=== PATIENT | female | born 1995 | race African-American/Black ===

== ENCOUNTER → 2019-07-05 | Outpatient (CLI) | payer OTHER ==
[~2019-07-05] MED LIST: PRENTAB9 PO
--- NOTE | 2019-07-05 22:19 | REP ---
Clinical: Growth evaluation. Comparison: None . Findings: Examination demonstrates a single live intrauterine in cephalic presentation. motion is identified by technologist. Placenta is noted the anterior and grade 2 without evidence for placenta previa or abruption. Amniotic fluid volume is normal. Cervix measures 3.6 cm in length and appears closed. No evidence for nuchal cord. Gestational age by current measurements 32 weeks 0 days with ROLDAN 08/30/2019 . FHR equals 153 beats per minute. BPD 7.9 cm 31 weeks 5 days HC 29.4 cm 32 weeks 3 days AC 27.8 cm 31 weeks 6 days FL 6.2 cm 832 weeks 2 days HL 5.5 cm 831 weeks 5-day HC/AC ratio 1.05 Estimated weight 1887 grams ( 44th percentile). Amniotic fluid index: 11.0 cm (8.6 - 24.2) Umbilical cord SD ratio: 2.17 (2.50 - 3.50) Anatomical assessment demonstrates normal structures including cranium, cavum, facial features, lungs, ventricular outflow tracts, diaphragm, stomach, cord insertion, kidneys/bladder. Limited evaluation of the cord plexus, posterior fossa/cerebellum, four-chamber heart, cord insertion, spine and extremities. Impression: Single live intrauterine in cephalic presentation demonstrating appropriate estimated weight. Anatomical limitations as noted above. Electronically Signed by Esdras Jaime MD 07/05/2019 10:10 P
== END ==
LOC: M RAD 12:55
PROVIDERS: ATTEND Advanced Practice Midwife
DX: Z34.83 Encounter for supervision of other normal pregnancy, third trimester (principal)

== ENCOUNTER 2019-07-11 15:18 | Outpatient (CLI) | payer OTHER ==
[~2019-07-11] VITALS: Ht 167.6 cm; Wt 135.0 kg
[2019-07-11 15:41] VITALS: BP 115/57
[2019-07-11] MEDS ORDERED: PRENTAB9 PO (16:07)
[2019-07-11 16:16] VITALS: BP 114/60
--- NOTE | 2019-07-11 17:25 | IPNPDOC ---
Obstetrical Progress Note Date of Service Jul 11, 2019 Subjective 23yo at 33+3wks by LMP, EDC [id number], sent from [facility] for NST. Pt's complicated by morbid obesity (BMI 45.03) and currently undergoing weekly APFT. Pt was unable complete monitoring in clinic today, unable to keep EFM in place d/t body habitus. Pt has no concerns today. Objective Vital Signs Date Time Temp Pulse Resp B/P (MAP) Pulse Ox O2 Delivery O2 Flow Rate FiO2 07/11/19 16:16 98.2 85 18 114/60 (78) Assessment Heart Rate (FHR): 135 Variability: Moderate Accelerations: Positive Decelerations: None Heart Rate Tracing: Category I Tocometer Contractions: No Assessment and Plan Status: Reassuring Additional Comments A: at 33+3 wks, Reactive Tracing, Category I P: Discharge home with precautions f/u in 1 week for APFT or sooner PRN AMBER STEEL CNM Jul 11, 2019 17:02
== END 2019-07-11 16:20 | disposition home or self-care (01) ==
LOC: M LDO 15:18
PROVIDERS: ATTEND Registered Nurse Maternal Newborn
DX: Z36.89 Encounter for other specified antenatal screening (principal); O99.213 Obesity complicating pregnancy, third trimester; Z68.42 Body mass index [BMI] 45.0-49.9, adult; Z3A.33 33 weeks gestation of pregnancy

== ENCOUNTER 2019-08-24 16:57 | Inpatient (IN) | payer OTHER ==
[~2019-08-24] VITALS: Ht 167.6 cm; Wt 141.1 kg
[2019-08-24 17:26] VITALS: BP 118/69
[2019-08-24] MEDS ORDERED: PENICILLIN G POTASSIUM IV 5 MU in D5W MINI-BAG PLUS 100 ML IV STA (17:34)
[2019-08-24] MEDS ORDERED: LACTATED RINGER'S 1000 ML IV STA (17:34)
[2019-08-24] MEDS ORDERED: ASPI81CH33 PO (17:41)
--- NOTE | 2019-08-24 17:54 | HPEPDOC ---
Obstetrical History & Physical General Date of Admission 08/24/19 Primary Care Physician: Fariha Rowan MD History of Present Illness OB Considerations: GDMA1 VZV non immune GBS positive BI 45 Ms. Andrews is a 23y/o G1 @ 39+5 wks by LMP c/w 11 wk US (ROLDAN [id number]) presenting for SROM clear fluid at 1418 this afternoon. Endorses painful contractions x2 days. Denies vaginal bleeding. Active movement. Chief Complaint: LOF, term Information Provided By: Patient Age: 23 : 1 Term: 0 Pre-term: 0 Abortions: 0 Livin Care Care: Good Care Dating Final EDC: Aug 26, 2019 Final EDC for Daily Update: Aug 26, 2019 Final EDC by: LMP LMP: Nov 19, 2018 1st Trimester Date: Jan 31, 2019 Estimated Date of Confinement: Aug 26, 2019 EGA at Admission: 39.5 Antepartum Course Diagnos(e)s Obesity, GDMA1, VZV non immune, GBS pos Height (inches): 66 Pre- weight (lbs.): 279 Admission Weight (lbs.): 310 Change in Weight (lbs.): 31.2 Past Medical History Past Obstetrical History : Past Obstetrical History: Primgravida Past Medical History Medical History Denies Surgical History: Denies/None Family History Significant Family History: No pertinent family hx Family History Aunt with breast cancer Social History Marital Status: Family situation: Spouse/partner home Psychosocial History: No pertinent psych hx * Smoker: non-smoker Alcohol: Denies Drugs: denies Abuse Violence Screening Have you been hit/kicked/slapp: No Have you been sexually assault: No Allergies Coded Allergies: No Known Allergies (Unverified , 07/11/19) Medications Scheduled Aspirin (Aspirin) 81 Mg Tab.chew, 1 TAB PO DAILY for pain No.137/Iron/Folic Acd ( Vitamin Tablet) 1 Each Tablet, 1 TAB PO DAILY Physical Examination Physical Examination GENERAL: Alert and oriented times three. BREAST: . ABDOMEN: Gravid and non-tender to touch. FETUS: Is vertex (VTX) by sterile vaginal examination (SVE), fetus is vertex (VTX) by Jose Enrique. TAUS confirms cephalic presentation. HEART RATE: Regular rate and rhythm. LUNGS: Clear to auscultation (CTA). EXTREMITIES: No edema. Vital Signs/I&O hr 95 bp 127/91 Laboratory Data 24H LABS HCT 34.8 Platelets 254 Urine Culture: Other Pertinent Laboratoy Data Blood Type: AB+ RBC Antibody Screen: Negative HIV: Negative Hepatitis B: Negative Hepatitis C: Unknown Rapid Plasma Reagin: Nonreactive Rubella: Immune Varicella: Nonreactive Chlamydia/Gonorrhea: Negative Quad Screen Test: Negative Cystic Fibrosis: Negative Anatomy Ultrasound Ultrasound Date: Jun 19, 2019 Placenta Location: Anterior Normal Anatomy: Yes Placenta Previa: No Estimated Weight (grams): 1493 Other Ultrasounds [id number] Information EFW 2865g +/- 430g 64%tile Steroid Therapy Steroid Therapy: No Vaginal Examination Dilation: 2cm Effacement: 70% Station: -2 Cervical Consistency: Soft Cervical Position: Posterior Presentation: Cephalic presentation Position: Vertex (occiput) Assessment Heart Rate (FHR): 145 Variability: Moderate Accelerations: Positive Decelerations: None Tocometer Contractions: No Multi-drug resistant Organism: No history of MDRO Assessment/Plan Assessment 23y/o G1 @ 39+5 wks by LMP c/w 11 wk US admitted for PROM clear fluid. Plan Admit and orient. Safety Manager and consent. Diet: Clear liquid Group B Streptococcus (GBS) positive. PCN ordered for prophylaxis. Labs and intravenous (IV) per unit protocol. Counseled on Pitocin and induction of labor (IOL). Lactated Ringers (LR): Bolus 1000 mL, then at 125 mL/hr. Anticipate normal spontaneous delivery (). C-S as appropriate. Labor and Delivery Counseling Discussed with patient procedures on labor and delivery to include external and internal monitoring of contractions and FHR. Discussed medications for induction of labor and medications for pain. Risks of labor and delivery include infections, which would be treated with antibiotics, need for episiotomy or tearing of the vaginal opening which will be repaired with absorbable sutures. Risks of bleeding to include need for blood transfusion with subsequent risks of bloodborne infection (Hepatitis/HIV) or transfusion reaction. Other procedures may be needed for distress such as forceps, v acuum or emergency . Other risks include injury to baby or additional procedures following delivery. Fariha Rowan MD Aug 24, 2019 17:54
[2019-08-24 18:51] VITALS: BP 127/91
[2019-08-24 19:11] LABS: HEMATOCRIT 34.8 % (36.0-47.0); HEMOGLOBIN 11.1 g/dl (12.0-15.5); MEAN CORPUSCULAR HEMOGLOBIN 28.2 pg (27.0-33.0); MEAN CORPUSCULAR HGB CONC 31.9 g/dl (32.0-36.5); MEAN CORPUSCULAR VOLUME 88.3 fl (80.0-96.0); PLATELET COUNT, AUTOMATED 254 10^3/uL (150-450); RED BLOOD COUNT 3.94 10^6/uL (4.00-5.40); WHITE BLOOD COUNT 7.5 10^3/uL (4.0-10.0)
[2019-08-24] MEDS ORDERED: miSOPROStol 50 MCG 1/2 TAB (S0191) SL ONE (21:00)
[2019-08-24] MEDS: LR 1,000 ML IV SCH (21:48)
[2019-08-24] MEDS: PENICILLIN G POTASSIUM IV 2.5 MU in IV 1 EA IV SCH (23:24)
[2019-08-25] VITALS (31 sets, daily range): BP systolic 88–137; BP diastolic 50–79
[2019-08-25] MEDS: LR 1,000 ML IV SCH ×4 (01:00→16:02)
--- NOTE | 2019-08-25 02:19 | IPNPDOC ---
Text Note Date of Service The patient was seen on 08/25/19. NOTE OB Considerations: GDMA1 - Dstick 102, repeat 74 VZV non immune GBS positive BMI 45 Ms. Andrews is a 23y/o G1 @ 39+5 wks by LMP c/w 11 wk US (ROLDAN [id number]) presenting for SROM clear fluid at 1418. 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
[2019-08-25] MEDS ORDERED: OXYTOCIN DRIP 30 UNITS in IV 1 EA IV SCH ×3 (02:30→15:30)
[2019-08-25] MEDS: PENICILLIN G POTASSIUM IV 2.5 MU in IV 1 EA IV SCH ×3 (03:41→11:01)
--- NOTE | 2019-08-25 04:59 | IPNPDOC ---
Text Note Date of Service The patient was seen on 08/25/19. NOTE OB Considerations: GDMA1 - Dstick 102, repeat 74 VZV non immune GBS positive BMI 45 Ms. Andrews is a 23y/o G1 @ 39+6 wks by LMP c/w 11 wk US (ROLDAN [id number]) presenting for SROM clear fluid at 1418. To room with difficulty tracing FHR and contractions due to patient movement with discomfort as well as body habitus. Presenting for internal monitors per RN request. /-2 Cytotec 50mcg Buccal 0950 0210 /-1 0430 /-1, FSE and IUPC placed this exam With internals in place: NST: 145, mod, +accels, no decels TOCO: q3 minutes A/p: 23y/o G1 @ 39+6 wks in latent labor with Familia tracing -Continue PCN for GBS prophylaxis -Continue Pitocin per protocol -Repeat DCE 4-6 hours or sooner PRN VS,Fishbone, I+O VS, Fishbone, I+O Laboratory Tests 08/24/19 18:49 Vital Signs Date Time Temp Pulse Resp B/P (MAP) Pulse Ox O2 Delivery O2 Flow Rate FiO2 08/24/19 18:51 20 08/24/19 18:51 95 127/91 (103) 08/24/19 17:26 98.2 Fariha Rowan MD Aug 25, 2019 04:59
[2019-08-25] MEDS ORDERED: NALBUPHINE HCL 10 MG/ML AMP (J2300) IV ONE (06:45)
[2019-08-25] MEDS ORDERED: NALBUPHINE HCL 10 MG/ML AMP (J2300) IM ONE (06:45)
--- NOTE | 2019-08-25 07:43 | IPNPDOC ---
Text Note Date of Service The patient was seen on 08/25/19. NOTE OB Considerations: GDMA1 - Dstick 102, repeat 74 VZV non immune GBS positive BMI 45 MsAnnie Andrews is a 23y/o G1 @ 39+6 wks by LMP c/w 11 wk US (ROLDAN [id number]) presenting for SROM clear fluid at 1418. Called by RN with concerns for heart tracing. FSE disconnected and difficulty tracing baby. Once FHR re- established, concern for minimal variability. IUPC remains in place. /-2 Cytotec 50mcg Buccal 0950 0210 2/-1 0430 4100/-1, FSE and IUPC placed this exam 0730 4/0 scalp stim performed with acceleration noted in response. NST: 130, min miko, +accels, no decels TOCO: q3-5 minutes Pitocin off A/p: 23y/o G1 @ 39+6 wks in latent labor with Familia tracing -Ruptured on Pitocin since 0210 this morning, will meet criteria for failed induction at 1400 this afternoon -Continue PCN for GBS prophylaxis -Discussed with patient recommendation for consideration of epidural for pain control, which will allow easier placement of internal monitors. Discussed that we need to be able to increase Pitocin to make her cervix dilate. Discussed that epidural is also useful if needing to do a section, as she may need to go to sleep if there is no time for spinal. Will give Pitocin rest for baby to recover. Patient to consider epidural. -Repeat DCE 4-6 hours after restarting pitocin or sooner for FSE placement as needed VS,Fishbone, I+O VS, Fishbone, I+O Laboratory Tests 08/24/19 18:49 Vital Signs Date Time Temp Pulse Resp B/P (MAP) Pulse Ox O2 Delivery O2 Flow Rate FiO2 08/25/19 03:50 68 137/70 (92) 08/24/19 18:51 20 08/24/19 17:26 98.2 Fariha Rowan MD Aug 25, 2019 07:43
--- NOTE | 2019-08-25 08:20 | IPNPDOC ---
Text Note Date of Service The patient was seen on 08/25/19. NOTE OB Considerations: GDMA1 - Dstick 102, repeat 74 VZV non immune GBS positive BMI 45 MsAnnie Andrews is a 23y/o G1 @ 39+6 wks by LMP c/w 11 wk US (ROLDAN [id number]) presenting for SROM clear fluid at 1418. IUPC remains in place. Called by RN for inability to trace baby with external monitors, requesting FSE. /-2 Cytotec 50mcg Buccal 0950 0210 /-1 0430 4100/-1, FSE and IUPC placed this exam 0730 4100/0 scalp stim performed with acceleration noted in response. 0829 4/100/0 FSE replaced NST: 130, min tomod miko, +accels, no decels TOCO: 6 minutes Pitocin off A/p: 23y/o G1 @ 39+6 wks in latent labor with Familia tracing -Ruptured on Pitocin since 0210 this morning, will meet criteria for failed induction at 1400 this afternoon. Discussed this criteria with patient. -Continue PCN for GBS prophylaxis -Reiterated that epidural may help with labor course -Will re-initiate Pitocin per protocol once FHR re-established -Repeat DCE 4-6 hours after restarting Pitocin or sooner PRN VS,Fishbone, I+O VS, Fishbone, I+O Laboratory Tests 08/24/19 18:49 Vital Signs Date Time Temp Pulse Resp B/P (MAP) Pulse Ox O2 Delivery O2 Flow Rate FiO2 08/25/19 03:50 68 137/70 (92) 08/24/19 18:51 20 08/24/19 17:26 98.2 Fariha Rowan MD Aug 25, 2019 08:20
[2019-08-25] MEDS ORDERED: FENTANYL 2MCG/ML ROPIVACAINE 0.2% IN 0.9% NACL 100ML IVBAG As Ordered ONE (08:55)
[2019-08-25] MEDS ORDERED: ePHEDrine SULFATE 25 MG/5 ML(5MG/ML) SYRINGE IV PRN (10:15)
[2019-08-25] MEDS ORDERED: ONDANSETRON 4MG/2ML VIAL (J2405) IV PRN ×2 (10:15→14:22)
[2019-08-25] MEDS ORDERED: EPIDURAL COMMENT XX SCH (10:15)
[2019-08-25] MEDS ORDERED: LACTATED RINGER'S 1000 ML IV PRN (10:15)
[2019-08-25] MEDS ORDERED: diphenhydrAMINE INJ 50MG/ML VIAL (J1200) IV PRN ×2 (10:15→14:22)
[2019-08-25] MEDS ORDERED: REFRIGERATOR IV KEYS XX PRN (10:15)
[2019-08-25] MEDS ORDERED: EPIDURAL/PCA KEYS XX PRN (10:15)
[2019-08-25] MEDS ORDERED: FENTANYL/ROPIVACAINE/NACL BAG 100 ML EPIDURAL SCH (10:15)
[2019-08-25] MEDS ORDERED: NALOXONE INJ 0.4 MG/1 ML VIAL (J2310) IV PRN ×3 (10:15→14:22)
--- NOTE | 2019-08-25 12:58 | IPNPDOC ---
Obstetrical Progress Note Date of Service Aug 25, 2019 Subjective Assumed care of 23yo at 39+6wks admitted [id number] for PROM and subsequent IOL with cytotec x1 and now pitocin. Pitocin was turned off at 0707 this morning d/t Category II FHT for minimal variability and was to be restarted after epidural with Category I FHT. Pt is comfortable with epidural in place, no concerns, supported by spouse and mother at bedside. Objective O: VSS FHR 140s (baseline has been minimal for a majority of the time since I assumed care. LR bolus and O2 at 10L have been provided and there have been periods of moderate variability and an accels). Pitocin was resumed at 1042 (Oxygen turned off). VE was 4-5/90/-1. FSE was dislodged during this exam and subsequently replaced at 1050. Pitocin turned back off at 1156 d/t late decelerations; pt was repositioned to right lateral and O2 resumed. CTX present; MVUs inadeuate at this time. Dr. Brooks contacted at 1045 and 1206 for SBAR; Dr. Brooks states he will come in for assessment. Vital Signs Date Time Temp Pulse Resp B/P (MAP) Pulse Ox O2 Delivery O2 Flow Rate FiO2 08/25/19 11:27 82 18 123/72 (89) 08/25/19 09:56 98.5 Sterile Vaginal Examination Cervical Position: Posterior Postion/Presentation: Cephalic presentation Assessment and Plan Group B Streptococcus: Positive Additional Comments A: 23yo at 39+6wks, GBS + (adequately treated); Majority Category II FHT d/t minimal variability and late decelerations. P: Continuous Internal monitoring Restart pitocin at 1256 (1 hour after last turned off) Pending assessment by OB Continue to monitor AMBER STEEL CNM Aug 25, 2019 12:58
[2019-08-25] MEDS ORDERED: ceFAZolin SOD 3 GM in IV 1 EA IV ONE (13:30)
[2019-08-25] MEDS ORDERED: ceFAZolin SOD 1 GM in D5W MINI-BAG PLUS 50 ML IV ONE (13:30)
[2019-08-25] MEDS ORDERED: ceFAZolin SOD 2 GM in IV 1 EA IV ONE (13:30)
[2019-08-25] MEDS ORDERED: AZITHROMYCIN INJ 500 MG, VIAL MATE ADAPTER 1 EACH in D5W 250 ML IV ONE (13:30)
[2019-08-25] MEDS ORDERED: BICITRA 30ML SOLN UDC As Ordered ONE (13:37)
--- NOTE | 2019-08-25 13:38 | IPNPDOC ---
Text Note Date of Service The patient was seen on 08/25/19. NOTE Patient is a 23y/o G1 @ 39+6 wks by LMP c/w 11 wk US (ROLDAN [id number]) admitted for PROM clear fluid at 1418 on . She is comfortable with epidural. patient was inducted fro PROM as below. Pit was turned off about 3 hrs ago due to recurrent late with minimal variability. /-2 Cytotec 50mcg Buccal 0950 0210 /-1 0430 100/-1, FSE and IUPC placed this exam 0730 /0 scalp stim performed with acceleration noted in response. 0829 100/0 FSE replaced NST: 130/min-mod variability/ +accels/ no decels TOCO: ctx q 5mins CE: 4-/-1 (by MAJ Tee) a/p patient remains unchanged from prior check with difficulty augmenting patient. She has been on an off pit for about 12hrs. 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 Option of restarting pit and continue trial of labor vs. primary section discussed. Risk of section to include by not limited to infection, bleeding requiring blood transfusion, transmitting blood born pathogen, injuring to surrounding organs, possibility of hysterectomy, anesthesia risks as well as discussed with patient. Patient expresses understanding and desires to have delivery. consent forms signed. ancef and azithromycin for antibiotics back to OR once team ready DO PAULINO Brooks Fishbone, I+O VSDavid, I+O Laboratory Tests 08/24/19 18:49 Vital Signs Date Time Temp Pulse Resp B/P (MAP) Pulse Ox O2 Delivery O2 Flow Rate FiO2 08/25/19 13:05 99.6 78 18 94/51 (65) FARAZ BROOKS DO Aug 25, 2019 13:38
[2019-08-25] MEDS ORDERED: LIDOCAINE PRES-FREE 2% 10ML AMP As Ordered ONE (13:42)
[2019-08-25] MEDS ORDERED: EPINEPHrine INJ 1 MG/ML 1ML AMP As Ordered ONE (13:42)
[2019-08-25] MEDS ORDERED: BICITRA 30ML SOLN UDC PO ONE (13:45)
[2019-08-25] MEDS ORDERED: METOCLOPRAMIDE INJ 10MG/2ML VIAL (J2765) IV PRN (14:22)
[2019-08-25] MEDS ORDERED: NALBUPHINE HCL 10 MG/ML AMP (J2300) IV PRN (14:22)
[2019-08-25] MEDS ORDERED: OXYTOCIN INJ 10 UNITS/ML VIAL (J2590) As Ordered ONE (15:02)
[2019-08-25] MEDS ORDERED: ACETAMINOPHEN 1000MG 100ML IV BTL (OFIRMEV) (J0131 PER 10MG) As Ordered ONE (15:02)
[2019-08-25] MEDS ORDERED: ONDANSETRON 4MG/2ML VIAL (J2405) As Ordered ONE (15:02)
[2019-08-25] MEDS ORDERED: MORPHINE PRES-FREE INJ 10 MG/10 ML VIAL (J2274) As Ordered ONE (15:02)
[2019-08-25] MEDS ORDERED: KETOROLAC 60 MG/2 ML VIAL (J1885) As Ordered ONE (15:02)
[2019-08-25] MEDS ORDERED: RHOGAM 300 MCG (1500 IU) INJ (J2790) IM SCH (15:30)
[2019-08-25] MEDS ORDERED: MEASLES,MUMPS,RUBELLA VACCINE INJ (MMR-II) (90707) SC SCH (15:30)
[2019-08-25] MEDS ORDERED: OXYTOCIN 30 UNITS IN 0.9% NaCl 500ML IV BAG (J2590) As Ordered ONE (15:40)
[2019-08-25] MEDS ORDERED: fentaNYL 100 MCG/2 ML INJECTION (J3010) IV PRN (15:45)
--- NOTE | 2019-08-25 16:16 | POST-OPPD ---
Postoperative Procedure Note Date Of Procedure: Aug 25, 2019 PREOPERATIVE DIAGNOSIS: Gravid @ 39+6wks Premature ruptured of membranes at term failed induction morbid obesity GDMA1 POSTOPERATIVE DIAGNOSIS: morbid obesity FINDINGS: viable infant, 8/9, weight 3210 gm normal appearing uterus, ovaries and fallopian tubes PROCEDURE: primary low transverse section SURGEON: Jasmin Brooks DO COMMUNITY SERVICE WORKER: Iesha Hackett CNM ANESTHESIA: epidural SPECIMENS: none ESTIMATED BLOOD LOSS: 800cc REPLACED: 1L LR DRAINS: 300cc urine COMPLICATIONS: none POSTOPERATIVE CONDITION: stable Indication for procedure: patient is a 23 yo G1 @ 39+6WKS admitted for PROM. She was induced with cytotec and pitocin. Patient progressed to 4cm. Pitocin was intermittently turned off due to intolerance to labor. Patient diagnosed with failed induction. Patient agrees to move forward with primary delivery. Description of procedure: Description of procedure: The risks, benefits, indications and alternatives to the procedure were reviewed with the patient and informed consent was obtained. Labor epidural anesthesia was dosed for surgical analgesic. She was prepped and draped in the normal sterile fashion in the dorsal supine position with a leftward tilt. The abdomen was entered through a pfannenstiel incision. Sharp dissection taken down to fascia layer. Fascia layer entered with sharply and carried lateral and upward bilaterally. Superior border of fascia grasp with Krockers x 2 and a space between fascia and rectus muscle created bluntly and sharply. Inferior fascia layer grasp with Krockers x 2 and fascia from rectus muscle bluntly and sharply. The rectus muscles and peritoneum bluntly along midline and exposes the gravid uterus. The Mobius retractor placed intraabdominal. The vesicouterine peritoneum was identified. A Bernardo uterine incision made sharply. The uterine incision was extended superolaterally. Baby found to be OP. Head delivered through the hysterotomy. Nuchal cord x 1 reduced. The anterior and posterior shoulders delivered followed by body with ease. The cord was clamped and cut. The infant was handed off to warmer. Pitocin bolus started. The placenta delivered spontaneously. The uterus was cleared of all clots and debris. The uterine incision was repaired with a 2 layers of with 0 chromic in a running locking fashion and imbricating layer with O monocryl. Hysterotomy inspected to be hemostatic. Mobius retractor removed. The peritoneum, fascia and muscle bellies were inspected and noted to be hemostatic. The peritoneum brought back together midline with 3-0 vicryl. The fascia approximated with 0 vicryl suture in a running fashion. The subcutaneous tissue closed with 3-0 vicryl. The skin was closed with subcuticular 4-0 Monocryl. Vacuum dressing applied. The vagina was cleared of clots. Sponge laps, needle and instruments count correct x 2. Patient taken to recovery room in stable condition. DO ELLA Brooks LUAT N. DO Aug 25, 2019 16:08
--- NOTE | 2019-08-25 16:18 | DNPDOC ---
[facility] Delivery Note Delivery Note DATE OF DELIVERY: [id number] PREDELIVERY DIAGNOSIS: 39+6 weeks gestation prom failed induction POST DELIVERY DIAGNOSIS: Delivered PROCEDURE section SEWING SUPERVISOR: Faraz Garcia DO ANESTHESIA: epidural. ESTIMATED BLOOD LOSS: 800cc FINDINGS: 7 pound 1ounce female infant, Score 8/9, nuchal cord times 1 DELIVERY SUMMARY: uncomplicated pimary low transverse delivery. See operative note for details. FARAZ JARAMILLO DO Aug 25, 2019 16:18
[2019-08-25] MEDS: PRENATAL VITAMINS CHEWABLE TABLET PO SCH (18:05)
[2019-08-25] MEDS: KETOROLAC 30 MG/ML VIAL (J1885) IV SCH (21:42)
[2019-08-26 02:15] VITALS: BP 121/62
[2019-08-26] MEDS: KETOROLAC 30 MG/ML VIAL (J1885) IV SCH ×2 (04:27→10:12)
[2019-08-26 06:10] VITALS: BP 110/60
[2019-08-26 07:05] LABS: HEMOGLOBIN 9.4 g/dl (12.0-15.5); MEAN CORPUSCULAR HGB CONC 32.4 g/dl (32.0-36.5); MEAN CORPUSCULAR VOLUME 89.5 fl (80.0-96.0); PLATELET COUNT, AUTOMATED 171 10^3/uL (150-450); RED BLOOD COUNT 3.24 10^6/uL (4.00-5.40); WHITE BLOOD COUNT 8.8 10^3/uL (4.0-10.0)
[2019-08-26] MEDS: LR 1,000 ML IV SCH ×2 (07:30→15:30)
--- NOTE | 2019-08-26 08:52 | IPNPDOC ---
Progress Note Date of Service: Aug 26, 2019 Day#: 1 Progress Note SUBJECT: Patient is a 23 yo pod #1 S/P pltcd for failed induction after PROM. today without concern. Luciana came out this AM. She ambulated yesterday. tolerating po. Breast feeding without issue. Plans on using barrier contraceptive. OBJECTIVE: VITAL SIGNS: Within normal limits, afebrile. Alert and oriented times three. Breath sounds clear to auscultation. Heart rate: Regular rate and rhythm, no murmurs, rubs or gallops. Abdomen: vacuum dressing in place, no strike through noted. LE: +edema, no erythema/tenderness a/p patien tis a pod #1, doing well. noted low grade temp. encourage ambulation, use of IS. encourage bf. contraceptive counseling. due to void this afternoon. anticipated d/c home tomorrow. DO Cecilia VS, I&O, 24H, Fishbone Vital Signs/I&O Vital Signs Date Time Temp Pulse Resp B/P (MAP) Pulse Ox O2 Delivery O2 Flow Rate FiO2 08/26/19 06:10 99.5 82 18 110/60 (77) 100 I&O- Last 24 Hours up to 6 AM 08/26/19 06:00 Intake Total 2695 ml Output Total 2490 ml Balance 205 ml Laboratory Data 24H LABS Laboratory Tests 2 08/26/19 06:46: Nucleated Red Blood Cells % (auto) 0.0 CBC/BMP Laboratory Tests 08/26/19 06:46 FARAZ JARAMILLO DO Aug 26, 2019 08:52
[2019-08-26] MEDS: PRENATAL VITAMINS CHEWABLE TABLET PO SCH (10:12)
[2019-08-26 10:37] VITALS: BP 104/55
[2019-08-26 14:02] VITALS: BP 121/76
[2019-08-26 17:49] VITALS: BP 115/61
[2019-08-26] MEDS: IBUPROFEN 800 MG TAB PO SCH (18:55)
[2019-08-26] MEDS ORDERED: PERCOCET 5MG/325MG TAB PO PRN ×2 (19:45)
[2019-08-26 22:00] VITALS: BP 118/65
[2019-08-27] MEDS: IBUPROFEN 800 MG TAB PO SCH ×2 (00:04→08:48)
[2019-08-27 02:00] VITALS: BP 119/64
[2019-08-27 06:00] VITALS: BP 132/72
--- NOTE | 2019-08-27 07:26 | IPNPDOC ---
Progress Note Date of Service: Aug 08, 2019 Progress Note SUBJECT: Patient is a 23 yo pod #2 S/P pltcd for failed induction after PROM. today without concern. Voiding, ambulating and tolerating po without problem. Breast feeding without issue. Plans on using barrier contraceptive. OBJECTIVE: VITAL SIGNS: Within normal limits, afebrile. Alert and oriented times three. Abdomen: vacuum dressing in place, no strike through noted. LE: +edema, no erythema/tenderness a/p patientis a pod #2, doing well. encourage ambulation, use of IS. encourage bf. discharge instructions given. d/c home today. Le, DO VS, I&O, 24H, Fishbone Vital Signs/I&O Vital Signs Date Time Temp Pulse Resp B/P (MAP) Pulse Ox O2 Delivery O2 Flow Rate FiO2 08/27/19 06:12 18 Room Air 08/27/19 06:00 98.4 73 132/72 (92) 08/26/19 17:49 96 I&O- Last 24 Hours up to 6 AM 08/27/19 05:59 Intake Total 75 ml Output Total 1100 ml Balance -1025 ml FARAZ JARAMILLO DO Aug 27, 2019 07:26
--- NOTE | 2019-08-27 07:50 | OBDS ---
[facility] Obstetrical Discharge Sum. Obstetrical Discharge Summary Site Monitor/Provider: FARAZ JARAMILLO DO Date: Aug 27, 2019 : 1 Term: 0 Pre-term: 0 Abortions: 0 Livin VDRL: Non-Reactive Rh: Positive Rubella: Immune Sex: Female Infant Weight: pounds (7), ounces (1), grams Anesthesia: Regional Anesthesia A/P, Post Course List any complications Admission diagnosis: premature ruptured of membranes at term morbid obesity Discharge diagnosis: status post primary low transverse section morbid obesity Condition at Discharge: stable Discharge Instructions: Home Activity: as tolerated Diet: regular Medications: filled at [facility] Follow-up: 1 week check Hospital course: Patient admitted induction of labor for premature rupture of membranes at term. She was diagnosed with failed induction at 4cm. Patient underwent primary low transverse section. Delivery was uncomplicated. course uncomplicated and patient discharged home on day #2. FARAZ JARAMILLO DO Aug 26, 2019 18:32
[2019-08-27] MEDS: PRENATAL VITAMINS CHEWABLE TABLET PO SCH (08:48)
[2019-08-27] MEDS ORDERED: MIRALAX *UNIT DOSE* 17GM PACKET PO SCH (09:00)
== END 2019-08-27 11:29 | disposition home or self-care (01) | DRG 773 ==
LOC: M LDO 16:57 → M LDI 19:22 → M OBS 08-25 16:50
PROVIDERS: ADMIT Obstetrics & Gynecology; ATTEND Obstetrics & Gynecology
PROC: 3E033VJ Introduction of Other Hormone into Peripheral Vein, Percutaneous Approach (ICD-10-PCS; 2019-08-24)
PROC: 10D00Z1 Extraction of Products of Conception, Low, Open Approach (ICD-10-PCS; principal; 2019-08-25 14:15)
DX: O42.02 Full-term premature rupture of membranes, onset of labor within 24 hours of rupture (principal); Z37.0 Single live birth; O99.820 Streptococcus B carrier state complicating pregnancy; O61.0 Failed medical induction of labor; Z3A.39 39 weeks gestation of pregnancy